=== PATIENT | male | born 1960 | race Caucasian/White ===

== ENCOUNTER 2016-09-20 12:40 | Emergency (ER) | payer BC ==
[~2016-09-20] VITALS: Ht 180.3 cm; Wt 83.5 kg
--- NOTE | ~2016-09-20 | CT71 ---
[facility] A Service of [facility] RADIOLOGY TEXT RESULTS PATIENT: VILLA MACKAY LOCATION: [facility] [place] : 58 UNIT #: [id number] AGE: [address]: Whitney Ivan MD SEX: M ORDER DR: [id number] [place] [id number] E MR#: [id number] Acc #: [id number] NAME: VILLA MACKAY. : 1960 SEX: M STUDY DATE/TIME: 09/20/2016 14:01 UNIT: SED ROOM: STUDY DESCRIPTION: CT Head Wo Contrast Attending Physician: Whitney Ivan M.D. Ordering Physician: Whitney Ivan M.D. Primary Care Physician: No Primary Care Physician MEDICAL IMAGING REPORT This report is preliminary unless electronic signature is present. EXAM Head CT with contrast 09/20/2016. PROCEDURE Axial unenhanced head CT. This CT exam was performed with one or more of the following radiation dose reduction techniques: automatic exposure control, adjustment of mA and/or kV according to patient size, and iterative reconstruction. COMPARISON None HISTORY 1-week history of dizziness and vertigo. FINDINGS There is extensive right maxillary sinus mucosal disease including bony thickening, suggesting both acute and chronic changes in the right maxillary sinus. Intracranially, there is no hemorrhage or mass. There is no hydrocephalus or extraaxial fluid collection. There are some mild nonspecific white matter changes, but brain parenchymal density is otherwise essentially normal. The extracranial soft tissues are unremarkable, other than the changes in the right maxillary sinus, and the skull base and calvaria, including the temporal bones, appear normal. IMPRESSION Both acute and chronic-appearing right maxillary sinus disease, but otherwise, no acute abnormality. There is some mild nonspecific white matter change in the brain, but no acute intracranial abnormality is seen, and the skull base and calvaria, including the temporal bones, are normal, except for the changes in the right maxillary sinus. [facility] A Service of [facility] RADIOLOGY TEXT RESULTS PATIENT: VILLA MACKAY LOCATION: SED : 58 UNIT #: [id number] AGE: [address]: Whitney Ivan MD SEX: M ORDER DR: Dictated by... Sebastian Carreon M.D. THIS IS AN ELECTRONICALLY VERIFIED REPORT Sebastian Carreon M.D. at 09/25/2016 5:22 PM TEV/les TD: 09/20/2016 16:45 JOB #: [id number] MEDICAL IMAGING REPORT Page 1 of 1
--- NOTE | ~2016-09-20 | EKG ---
PATIENT: VILLA MACKAY UNIT #: [id number] Ventricular Rate: 95 BPM Atrial Rate: 95 BPM P-R Interval: 154 ms QRS Duration: 94 ms Q-T Interval: 366 ms QTC Calculation(Bezet): 459 ms P Inland: 37 degrees Calculated R Inland: 30 degrees Calculated T Inland: 37 degrees Diagnosis Line: Normal sinus rhythm Diagnosis Line: Normal ECG Diagnosis Line: When compared with ECG of 18-AUG-2015 16:54, Diagnosis Line: No significant change was found Diagnosis Line: Confirmed by BRIDGETTE HU MD ([id number]) on Diagnosis Line: 09/24/2016 8:07:45 AM INTERPRETING MD: FRITZ GO
[~2016-09-20 12:40] MED LIST: ACETAMINOPHEN PO; BACITRACIN3.5 G1; FLEXERIL10 MG PO; KEFLEX500 M1 PO; LORTAB 5-325 M1 EACH; NAPROSYN-EC500 M1 DOB; NAPROSYN500 MG PO; NO MEDICATIONS; ROBAXIN500 MG PO; TYLENOL #3 PO
[2016-09-20] MEDS ORDERED: OCUFLOX5 ML (12:45)
[2016-09-20] MEDS ORDERED: MECLIZINE HCL25 M1 PO (12:45)
== END 2016-09-20 15:02 | disposition home or self-care (01) ==
LOC: SED 12:40
DX: R42 Dizziness and giddiness (principal); J01.00 Acute maxillary sinusitis, unspecified; F41.9 Anxiety disorder, unspecified; I10 Essential (primary) hypertension; F17.210 Nicotine dependence, cigarettes, uncomplicated
CPT/HCPCS: 70450; 93005; 99284

== ENCOUNTER 2016-10-02 18:09 | Emergency (ER) | payer BC ==
[~2016-10-02 18:09] MED LIST changes: +MECLIZINE HCL25 M1 PO; +OCUFLOX5 ML
[2016-10-02] MEDS ORDERED: ATARAX (18:14)
[2016-10-02] MEDS ORDERED: VENLAFAXINE H37.5 M1 (18:14)
== END 2016-10-02 19:29 | disposition home or self-care (01) ==
LOC: SED 18:09
DX: F41.9 Anxiety disorder, unspecified (principal); I10 Essential (primary) hypertension; F17.200 Nicotine dependence, unspecified, uncomplicated
CPT/HCPCS: 99283